=== PATIENT | female | born 1980 | race African-American/Black ===

== ENCOUNTER 2018-10-06 21:54 | Emergency (ER) | payer OTHER ==
[~2018-10-06] VITALS: Ht 170.2 cm; Wt 89.8 kg
[2018-10-06] MEDS ORDERED: ALBUTEROL FS 2.5 MG/3 ML VIAL.NEB ONE (22:28)
[2018-10-06] MEDS ORDERED: IPRATROPIUM NEB FS 0.5 MG/2.5 ML AMPUL.NEB ONE (22:28)
--- NOTE | 2018-10-06 22:28 | NUR ---
URINE SAMPLE SENT TO LAB
[2018-10-06] MEDS ORDERED: IPRATROPIUM NEB FS 0.5 MG/2.5 ML AMPUL.NEB NEB ONE (22:30)
[2018-10-06] MEDS ORDERED: ALBUTEROL FS 2.5 MG/3 ML VIAL.NEB NEB ONE (22:30)
[2018-10-06 22:32] LABS: APPEARANCE,URINE Clear (CLEAR); BILIRUBIN,URINE Negative (NEGATIVE); BLOOD, URINE Trace-intact Ery/uL (NEGATIVE); COLOR,URINE Yellow (YELLOW); KETONES,URINE Negative (NEGATIVE); LEUKOCYTE ESTERASE ,URINE Trace (NEGATIVE); NITRITE, URINE Negative (NEGATIVE); PH,URINE 6.5 (5.0-8.0); PROTEIN,URINE Negative (NEGATIVE); UGLUCOSE Negative (NEGATIVE); UROBILINOGEN,URINE 0.2 EU/dL (0.2)
--- NOTE | 2018-10-06 22:41 | NUR ---
BREATHING TX IN PROGRESS
[2018-10-06 22:46] LABS: BACTERIA,URINE Few /HPF (None Seen); SQUAMOUS EPITHELIAL CELL,UR Few /HPF (None Seen)
[2018-10-06] MEDS ORDERED: LEVOFLOXACIN (500MG) 500 MG TABLET PO ONE (23:30)
[2018-10-06] MEDS ORDERED: LEVOFLOXACIN (500MG) 500 MG TABLET ONE (23:44)
--- NOTE | 2018-10-06 23:53 | NUR ---
PT APPEARS TO BE RESTING COMFORTABLY WITH NO S/S OF PAIN OR DISTRESS.
[2018-10-07 00:08] VITALS: BP 138/87
== END 2018-10-07 00:09 | disposition home or self-care (01) ==
LOC: ER 22:05
DX: J40 Bronchitis, not specified as acute or chronic (principal); F17.210 Nicotine dependence, cigarettes, uncomplicated
CPT/HCPCS: 71046; 81000-TC; 84703-TC

== ENCOUNTER 2018-10-25 19:44 | Emergency (ER) | payer OTHER ==
[~2018-10-25] VITALS: Ht 170.2 cm; Wt 88.9 kg
--- NOTE | 2018-10-25 19:51 | NUR ---
PT BIBS. C/O "HAVING ALLERGIC REACTION AFTER EATING CRAB, THIS HAPPENED 3 TIMES ALREADY" -SOB. -N/V AOX4. AMBULATORY. -DIZZY. AT BEDSIDE FOR ARLETH.
[2018-10-25 19:53] VITALS: BP 143/74
[2018-10-25] MEDS ORDERED: methylPREDNISolone SOD SUCC 125 MG/2ML VIAL IV ONE (20:00)
[2018-10-25] MEDS ORDERED: FAMOTIDINE/PF INJ 20 MG/2 ML VIAL IV ONE ×2 (20:00→20:04)
[2018-10-25] MEDS ORDERED: diphenhydrAMINE HCL 50 MG/ML VIAL IV ONE (20:00)
[2018-10-25] MEDS ORDERED: methylPREDNISolone SOD SUCC 125 MG/2ML VIAL ONE (20:03)
[2018-10-25] MEDS ORDERED: diphenhydrAMINE HCL 50 MG/ML VIAL ONE (20:03)
--- NOTE | 2018-10-25 20:30 | NUR ---
Patient is resting comfortably in bed with eyes closed. Easily aroused. VSS
--- NOTE | 2018-10-25 21:42 | NUR ---
IV removed. Catheter intact and site benign. Pressure and 4x4 applied to site. No bleeding noted.Patient discharged to home in stable condition. Written and verbal after care instructions given. Patient verbalizes understanding of instruction. PT AMBULATORY WITH STEADY GAIT.
== END 2018-10-25 21:53 | disposition home or self-care (01) ==
LOC: ER 19:48
DX: T78.3XXA Angioneurotic edema, initial encounter (principal); H02.843 Edema of right eye, unspecified eyelid; F17.200 Nicotine dependence, unspecified, uncomplicated; Z91.013 Allergy to seafood
CPT/HCPCS: 96374; 96375; 99283; J1200; J2930; J3490

== ENCOUNTER 2018-12-28 18:44 | Emergency (ER) | payer OTHER ==
[~2018-12-28] VITALS: Ht 170.2 cm; Wt 92.1 kg
--- NOTE | 2018-12-28 18:48 | NUR ---
PT BIBSELF FOR TONGUE SWELLING, THROAT AND CHEST TIGHTNESS X 1 HOUR; PT AAOX4, PT ON MONITOR, VSS, -SOB, PENDING MD REINOSO
[2018-12-28] MEDS ORDERED: FAMOTIDINE/PF INJ 20 MG/2 ML VIAL IV ONE ×2 (19:07→19:30)
[2018-12-28] MEDS ORDERED: methylPREDNISolone SOD SUCC 125 MG/2ML VIAL ONE (19:07)
[2018-12-28] MEDS ORDERED: diphenhydrAMINE HCL 50 MG/ML VIAL ONE (19:07)
[2018-12-28 19:13] LABS: BASOPHILS % (AUTO) 0.7 % (0.0-2.0); HEMATOCRIT 39 % (33-45); HEMOGLOBIN 12.7 g/dL (11.5-14.8); LYMPHOCYTES # (AUTO) 1.9 /CMM (0.8-4.8); LYMPHOCYTES % (AUTO) 28.4 % (20.0-44.0); MEAN CORPUSCULAR HGB CONC 33 g/dl (31.0-36.0); MEAN CORPUSCULAR VOLUME 89 fL (82-100); MONOCYTES # (AUTO) 0.4 /CMM (0.1-1.30); MONOCYTES % (AUTO) 6.8 % (2.0-12.0); NEUTROPHILS # (AUTO) 4.2 /CMM (1.8-8.9); NEUTROPHILS % (AUTO) 63.1 % (43.0-81.0); PLATELET COUNT (AUTO) 251 /CMM (150-450); RED BLOOD CELL COUNT(AUTO) 4.36 MIL/uL (4.0-5.2); WHITE BLOOD COUNT (AUTO) 6.6 K/uL (4.3-11.0)
[2018-12-28 19:21] LABS: CALCIUM, SERUM 8.9 mg/dL (8.5-10.1); CREATININE 0.8 mg/dL (0.6-1.3); POTASSIUM 3.7 mmol/L (3.5-5.1)
[2018-12-28 19:26] LABS: ALBUMIN 3.9 g/dL (3.4-5.0); BILIRUBIN,DIRECT 0.1 mg/dL (0.0-0.2); BILIRUBIN,TOTAL 0.4 mg/dL (0.2-1.0); TOTAL PROTEIN, SERUM 7.9 g/dL (6.4-8.2)
[2018-12-28] MEDS ORDERED: methylPREDNISolone SOD SUCC 125 MG/2ML VIAL IV ONE (19:30)
[2018-12-28] MEDS ORDERED: diphenhydrAMINE HCL 50 MG/ML VIAL IV ONE (19:30)
--- NOTE | 2018-12-28 20:07 | NUR ---
PT RESTING COMFORTABLY IN BED. VITAL SIGNS STABLE. DENIES SOB. PT STATES NO RELIEF SINCE MEDS WERE ADMINISTERED.
--- NOTE | 2018-12-28 22:08 | NUR ---
Patient discharged to home in stable condition. Written and verbal after care instructions given. Patient verbalizes understanding of instruction. IV removed. Catheter intact and site benign. Pressure and 4x4 applied to site. No bleeding noted. Pt ambulatory with a steady gait
[2018-12-28 22:09] VITALS: BP 110/74
== END 2018-12-28 22:09 | disposition home or self-care (01) ==
LOC: ER 18:50
DX: T78.3XXA Angioneurotic edema, initial encounter (principal); F17.200 Nicotine dependence, unspecified, uncomplicated
CPT/HCPCS: 36415; 71045; 80048; 80076; 85025; 93005; 96374; 96375; 99284; J1200; J2930; J3490

== ENCOUNTER 2019-01-28 12:02 | Emergency (ER) | payer OTHER ==
[~2019-01-28] VITALS: Ht 170.2 cm; Wt 93.0 kg
[2019-01-28] MEDS ORDERED: FAMOTIDINE/PF INJ 20 MG/2 ML VIAL IV ONE ×2 (12:30→12:35)
[2019-01-28] MEDS ORDERED: methylPREDNISolone SOD SUCC 125 MG/2ML VIAL IV ONE (12:30)
[2019-01-28] MEDS ORDERED: diphenhydrAMINE HCL 50 MG/ML VIAL IV ONE (12:30)
[2019-01-28] MEDS ORDERED: diphenhydrAMINE HCL 50 MG/ML VIAL ONE (12:35)
[2019-01-28] MEDS ORDERED: methylPREDNISolone SOD SUCC 125 MG/2ML VIAL ONE (12:35)
--- NOTE | 2019-01-28 12:45 | NUR ---
TONGUE SWELLING X 1 HR, SPEAKING FULL SENTENCES. PT AAOX4, VSS. RR EVEN & UNLABORED. DENIES CP, SOB, DIZZINESS, N/V OR ANY OTHER DISCOMFORT AT THIS TIME. PT SEEN & EVAL'D BY DR. NO, MEDICATED ORDERED & WILL CONT TO MONITOR.
--- NOTE | 2019-01-28 14:30 | NUR ---
PT ASLEEP, EASILY AWAKEN BY VERBAL STIMULI. PT TONGUE SWELLING SUBSIDED. DENIES CP, SOB, DIZZINESS, N/V AT THIS TIME. WILL CONT TO MONITOR.
[2019-01-28 16:22] VITALS: BP 122/76
== END 2019-01-28 16:23 | disposition home or self-care (01) ==
LOC: ER 12:02
DX: T78.3XXA Angioneurotic edema, initial encounter (principal); F10.10 Alcohol abuse, uncomplicated; F17.200 Nicotine dependence, unspecified, uncomplicated; Y90.9 Presence of alcohol in blood, level not specified
CPT/HCPCS: 96374; 99291; 96375; J1200; J2930; J3490

== ENCOUNTER 2019-03-03 17:07 | Emergency (ER) | payer OTHER ==
[~2019-03-03] VITALS: Ht 170.2 cm; Wt 90.7 kg
--- NOTE | 2019-03-03 17:16 | NUR ---
CAME IN FOR SWOLLEN TONGUE. DENIES SOB. INJECTED EPIPEN ON L THIGH. TO ER BED 9, HOOKED TO MONITOR, CHANGED TO GOWN, PROVIDED W WARM BLANKET, AWAITING MD REINOSO.
--- NOTE | 2019-03-03 17:17 | NUR ---
DR BAKER AT BEDSIDE
[2019-03-03] MEDS ORDERED: FAMOTIDINE/PF INJ 20 MG/2 ML VIAL IV ONE ×2 (17:28→17:30)
[2019-03-03] MEDS ORDERED: methylPREDNISolone SOD SUCC 125 MG/2ML VIAL ONE (17:28)
[2019-03-03] MEDS ORDERED: diphenhydrAMINE HCL 50 MG/ML VIAL ONE (17:28)
[2019-03-03] MEDS ORDERED: diphenhydrAMINE HCL 50 MG/ML VIAL IV ONE (17:30)
[2019-03-03] MEDS ORDERED: methylPREDNISolone SOD SUCC 125 MG/2ML VIAL IV ONE (17:30)
[2019-03-03] MEDS ORDERED: EPINEPHRINE (1:1000) MDV 30 MG/30ML VIAL IM ONE ×2 (18:00→19:30)
[2019-03-03] MEDS ORDERED: IV NS 0.9% 1,000 ML BAG IV ONE (18:00)
[2019-03-03] MEDS ORDERED: EPINEPHRINE (1:1000) 1 MG/ML AMPUL ONE ×2 (18:04→19:33)
--- NOTE | 2019-03-03 19:20 | NUR ---
REPORT GIVEN TO DONALD BALDWIN FOR STEPHANIE
--- NOTE | 2019-03-03 21:16 | NUR ---
PT STATING TONGUE "FEELS BETTER." LESS EDEMA NOTED.
--- NOTE | 2019-03-03 21:30 | NUR ---
Patient discharged to home in stable condition. Written and verbal after care instructions given. Patient verbalizes understanding of instruction. IV removed. Catheter intact and site benign. Pressure and 4x4 applied to site. No bleeding noted.
[2019-03-03 21:31] VITALS: BP 128/77
== END 2019-03-03 21:32 | disposition home or self-care (01) ==
LOC: ER 17:07
DX: T78.3XXA Angioneurotic edema, initial encounter (principal); F10.10 Alcohol abuse, uncomplicated; F17.200 Nicotine dependence, unspecified, uncomplicated; Y90.9 Presence of alcohol in blood, level not specified
CPT/HCPCS: 96372 ×2; 96374; 96375; 99283; J0171 ×4; J1200; J2930; J3490; J7030